=== PATIENT | female | born 1990 | race Caucasian/White ===

== ENCOUNTER 2018-09-04 09:18 | Emergency (ER) | payer SELFPAY ==
[2018-09-04] MEDS: AMOXICILLIN/CLAV 875 MG TAB PO (09:59)
[2018-09-04] MEDS: IBUPROFEN 800 MG TAB PO (10:00)
[2018-09-04] MEDS: DIPHTH/TET/ACEL PERTUSS (ADULT) 0.5 ML VIAL IM* (10:00)
[2018-09-04] MEDS: HYDROCODONE/APAP (10/325) TAB PO (10:25)
[2018-09-04] MEDS: ONDANSETRON (ODT) 4 MG TAB ODT (11:40)
== END 2018-09-04 11:44 | disposition home or self-care (01) ==
LOC: FTE 09:18
DX: S51.832A Puncture wound without foreign body of left forearm, initial encounter (principal); J45.909 Unspecified asthma, uncomplicated; W54.0XXA Bitten by dog, initial encounter; Y92.9 Unspecified place or not applicable; Z23 Encounter for immunization
CPT/HCPCS: 73090; 90471; 90715; 99283-25